=== PATIENT | female | born 1980 | race Caucasian/White ===

== ENCOUNTER → 2016-10-11 | Outpatient (CLI) | payer OTHER ==
--- NOTE | 2016-10-11 15:42 | DI ---
EXAM: LUMBAR SPINE 2-3 VIEWS LOCATION OF DICTATION: [place] HISTORY: [email or web address]: DIAGNOSTIC TESTING COMPARISON: No prior studies available for comparison. FINDINGS: There is slight right convexity curvature of the lumbar spine. There is no evidence for subluxation. There are no acute fractures. There is no significant spondylosis demonstrated. The surrounding soft tissues are within normal limits. IMPRESSION: 1. Slight right convexed curvature of the lumbar spine without evidence for subluxation. 2. No significant spondylosis. .
--- NOTE | 2016-10-11 16:13 | DI ---
EXAM: CERVICAL SPINE 4 OR 5 VIEWS LOCATION OF DICTATION: [place] HISTORY: [email or web address].[email or web address]: DIAGNOSTIC TESTING COMPARISON: No prior studies available for comparison. FINDINGS: There is preservation of cervical lordosis. There is no evidence for subluxation. There are no acute fractures demonstrated. There is no significant degenerative spondylosis. The prevertebral soft tissues are within normal limits. IMPRESSION: 1. No evidence for acute fracture or subluxation. 2. No significant degenerative spondylosis. .
== END ==
LOC: IMA 13:47
DX: Z02.89 Encounter for other administrative examinations (principal)